=== PATIENT | female | born 1985 | race African-American/Black ===

== ENCOUNTER 2017-08-06 17:00 | Emergency (ER) | payer OTHER ==
[~2017-08-06] VITALS: Ht 154.9 cm; Wt 45.0 kg
[2017-08-06 18:00] LABS: HEMATOCRIT 41.1 % (37.0-47.0); HEMOGLOBIN 13.7 g/dl (12.0-16.0); IMMATURE GRANULOCYTES 0.3 % (0.0-1.0); MEAN CELL VOLUME 85.4 fL CALC (80.0-100.0); MEAN CORPUSCULAR HGB 28.5 pG CALC (26.0-32.0); MEAN CORPUSCULAR HGB CONC 33.3 g/L CALC (32.0-36.0); NEUT# 8.3 thou/uL (2.00-7.15); RED BLOOD COUNT 4.81 mill/uL (4.20-5.60); RED CELL DISTRI WIDTH 13.2 % (11.5-15.5)
[2017-08-06 18:16] LABS: HCG SERUM/URINE (NEG/POS) NEGATIVE (NEGATIVE)
[2017-08-06 18:21] LABS: ALBUMIN 5.1 g/dL (3.2-5.0); ALKALINE PHOSPHATASE 88 u/l (38-126); ANION GAP 18 (6-22 (CALC)); BILIRUBIN, TOTAL 0.6 mg/dL (0.0-1.4); BUN 17 mg/dL (7-17); BUN/CREATININE RATIO 20 (12-20 (CALC)); CALCIUM 10.6 mg/dL (8.4-10.2); CARBON DIOXIDE 19 mmol/l (22-30); CHLORIDE 107 mmol/l (95-108); CREATININE 0.9 mg/dL (0.5-1.0); GFR > 60 ML/MIN (>=60 (CALC)); GFR FOR AFR.AMER. > 60 ML/MIN (>=60 (CALC)); GLUCOSE 138 mg/dL (65-105); POTASSIUM 4.2 mmol/l (3.5-5.1); SGOT/AST 39 u/l (14-36); SGPT/ALT 17 u/l (9-52); SODIUM 141 mmol/l (137-146); TOTAL PROTEIN 8.4 g/dL (6.3-8.2)
[2017-08-06] MEDS ORDERED: LORTAB 1010 MG PO (18:38)
[2017-08-06] MEDS ORDERED: AMOXICILLIN875 MG PO (18:38)
[2017-08-06 19:06] VITALS: BP 127/76
== END 2017-08-06 19:07 | disposition home or self-care (01) | DRG 563 ==
LOC: ED 17:00
PROVIDERS: Emergency Medicine
PROC: 2W3RX1Z Immobilization of Left Lower Leg using Splint (ICD-10-PCS; principal; 2017-08-06)
DX: S82.62XA Displaced fracture of lateral malleolus of left fibula, initial encounter for closed fracture (principal); S21.052A Open bite of left breast, initial encounter; S41.152A Open bite of left upper arm, initial encounter; F17.210 Nicotine dependence, cigarettes, uncomplicated; Y04.1XXA Assault by human bite, initial encounter; X50.1XXA Overexertion from prolonged static or awkward postures, initial encounter

== ENCOUNTER 2017-08-08 10:07 | Emergency (ER) | payer OTHER ==
[~2017-08-08] VITALS: Ht 154.9 cm; Wt 60.0 kg
[~2017-08-08 10:07] MED LIST: AMOXICILLIN875 MG PO; LORTAB 1010 MG PO
[2017-08-08] MEDS ORDERED: AMOXICILLIN500 MG PO (11:27)
[2017-08-08] MEDS ORDERED: LORTAB 1010 MG PO (11:28)
[2017-08-08] MEDS ORDERED: TRAMADOL HYDROC50 MG PO (11:38)
[2017-08-08 11:49] VITALS: BP 100/60
== END 2017-08-08 11:49 | disposition home or self-care (01) | DRG 561 ==
LOC: ED 10:07
DX: S82.62XD Displaced fracture of lateral malleolus of left fibula, subsequent encounter for closed fracture with routine healing (principal); M25.572 Pain in left ankle and joints of left foot; R60.9 Edema, unspecified